=== PATIENT | male | born 1980 | race Caucasian/White ===

== ENCOUNTER 2019-07-29 16:47 | Emergency (ER) | payer SELFPAY ==
[~2019-07-29] VITALS: Ht 177.8 cm; Wt 74.8 kg
[~2019-07-29 16:47] MED LIST: CLON0.5T23 PO
[2019-07-29 16:54] VITALS: BP 145/87
[2019-07-29] MEDS ORDERED: DIPHENHYDRAMINE HCL 12.5 MG/5 ML UDC PO ONE (17:30)
[2019-07-29] MEDS ORDERED: diphenhydrAMINE HCL 25 MG CAPSULE ONE (17:30)
== END 2019-07-29 17:34 | disposition home or self-care (01) ==
LOC: ER 16:48
DX: T65.891A Toxic effect of other specified substances, accidental (unintentional), initial encounter (principal); H57.89 Other specified disorders of eye and adnexa; F41.9 Anxiety disorder, unspecified; Z88.8 Allergy status to other drugs, medicaments and biological substances; Y92.89 Other specified places as the place of occurrence of the external cause
CPT/HCPCS: 99282; Q0163 ×2